=== PATIENT | female | born 1975 ===

== ENCOUNTER 2019-05-08 08:59 | Outpatient (CLI) | payer OTHER ==
[~2019-05-08 08:59] MED LIST: OMEPRAZOLE40 MG PO; ZANTAC300 MG PO
== END 2019-05-08 09:01 | disposition home or self-care (01) ==
LOC: RAD 08:59
DX: N20.1 Calculus of ureter (principal)

== ENCOUNTER 2020-08-27 06:59 | Day surgery (SDC) | payer OTHER ==
[~2020-08-27 06:59] MED LIST changes: +FROVA2.5 MG PO
== END 2020-08-27 16:40 | disposition home or self-care (01) ==
LOC: CIR.AMB 06:59
PROVIDERS: ATTEND Obstetrics & Gynecology Maternal & Fetal Medicine
DX: D25.0 Submucous leiomyoma of uterus (principal); N84.0 Polyp of corpus uteri; Z20.828 Contact with and (suspected) exposure to other viral communicable diseases